=== PATIENT | male | born 1945 | race Caucasian/White ===

== ENCOUNTER 2016-06-12 14:01 | Emergency (ER) | payer OTHER ==
[2016-06-12 15:06] LABS: BASOPHIL 1.1 % (0-2); EOSINOPHIL 0.2 % (0-7); HCT 48.8 % (42.0-52.0); HGB 16.8 g/dl (13.2-18.0); LYMPHOCYTE 38.1 % (15-48); MCH 33.6 pg (25.0-31.0); MCHC 34.4 g/dL (32.0-36.0); MCV 97.6 fL (78.0-100.0); NEUTROPHIL 53.6 % (41-80); PLT 131 K/uL (150-400); RDW 13.8 % (11.5-14.0); WBC 4.5 K/uL (4.0-10.5)
[2016-06-12 15:19] LABS: BILIRUBIN - TOTAL 0.7 mg/dL (0.1-1.0); CREATININE 0.5 mg/dL (0.7-1.2); GLOBULIN (CALCULATION) 4.7 g/dL (2.2-4.2); TOTAL PROTEIN 8.7 g/dL (6.4-8.3)
[2016-06-12 15:22] LABS: POTASSIUM 4.2 mmol/L (3.5-5.1)
[2016-06-12 16:48] LABS: BILIRUBIN NEGATIVE (NEGATIVE); BLOOD NEGATIVE Ery/uL (NEGATIVE); CLARITY CLEAR (CLEAR); COLOR YELLOW (YELLOW); GLUCOSE (U) NORMAL (NORMAL); KETONE (U) 3+ (LARGE) mg/dL (NEGATIVE); LEUKOCYTES NEGATIVE Leu/uL (NEGATIVE); NITRITE NEGATIVE (NEGATIVE); PROTEIN TRACE (LOW) mg/dL (NEGATIVE); SPECIFIC GRAVITY >=1.030 (1.001-1.030)
[2016-06-12 16:54] LABS: MUCOUS TRACE
[2016-06-12 16:57] LABS: AMPHETAMINES NEGATIVE (NEGATIVE); BARBITURATES NEGATIVE (NEGATIVE); BENZODIAZEPINES NEGATIVE (NEGATIVE); COCAINE NEGATIVE (NEGATIVE); MARIJUANA (THC) NEGATIVE (NEGATIVE); METHADONE NEGATIVE (NEGATIVE); TRICYCLIC ANTIDEPRESSANT NEGATIVE (NEGATIVE)
[2016-10-26] MEDS ORDERED: K-DUR20 MEQ PO (14:31)
== END 2016-06-12 17:18 | disposition home or self-care (01) ==
LOC: FER 14:01
PROVIDERS: Emergency Medicine
DX: F10.10 Alcohol abuse, uncomplicated (principal); Y90.8 Blood alcohol level of 240 mg/100 ml or more
CPT/HCPCS: 36415; 80053; 80305; 81001; 85025; G0480; J3411

== ENCOUNTER 2020-11-21 09:12 | Emergency (ER) | payer OTHER ==
[~2020-11-21 09:12] MED LIST: K-DUR20 MEQ PO
[2020-11-21 10:04] LABS: BILIRUBIN NEGATIVE (NEGATIVE); BLOOD 3+ Ery/uL (NEGATIVE); CLARITY CLOUDY (CLEAR); COLOR RED (YELLOW); GLUCOSE (U) NORMAL (NORMAL); LEUKOCYTES TRACE Leu/uL (NEGATIVE); NITRITE POSITIVE (NEGATIVE); PROTEIN 3+ mg/dL (NEGATIVE); SPECIFIC GRAVITY 1.025 (1.001-1.030); pH 6.5 (5.0-9.0)
[2020-11-21 10:19] LABS: BACTERIA 1+; URINARY RBC TNTC
[2020-11-21 10:20] LABS: SQUAMOUS EPITHELIAL CELLS RARE
[2020-11-21 10:33] LABS: BASOPHIL 0.4 % (0-2); EOSINOPHIL 0.2 % (0-7); HCT 26.4 % (42.0-52.0); HGB 8.8 g/dl (13.2-18.0); LYMPHOCYTE 11.9 % (15-48); MCH 33.6 pg (25.0-31.0); MCHC 33.3 g/dL (32.0-36.0); MCV 100.8 fL (78.0-100.0); MONOCYTE 13.9 % (0-12); MPV 10.9 fL (6.0-9.5); NEUTROPHIL 72.5 % (41-80); NRBC 0; PLT 166 K/uL (150-400); RBC 2.62 M/uL (4.70-6.00); RDW 13.8 % (11.5-14.0); WBC 8.4 K/uL (4.0-10.5)
[2020-11-21 10:56] LABS: ALBUMIN 2.4 g/dL (3.4-5.0); BILIRUBIN - TOTAL 1.1 mg/dL (0.2-1.0); BUN/CREAT RATIO (CALC) 18.2 RATIO; CREATININE 0.66 mg/dL (0.67-1.17); GLOBULIN (CALCULATION) 4.6 g/dL; POTASSIUM 4.6 mmol/L (3.5-5.1)
[2020-11-21] MEDS ORDERED: NORCO 5-325 TA1 EACH PO (14:03)
[2020-11-21] MEDS ORDERED: CIPRO500 MG PO (14:03)
== END 2020-11-21 14:48 | disposition home or self-care (01) ==
LOC: FER 09:12
PROVIDERS: Internal Medicine
DX: S32.018A Other fracture of first lumbar vertebra, initial encounter for closed fracture (principal); E87.1 Hypo-osmolality and hyponatremia; N39.0 Urinary tract infection, site not specified; D64.9 Anemia, unspecified; N32.89 Other specified disorders of bladder; W18.30XA Fall on same level, unspecified, initial encounter; Y92.009 Unspecified place in unspecified non-institutional (private) residence as the place of occurrence of the external cause
CPT/HCPCS: 36415; 72131; 80053; 81001; 82550; 84484; 85025; 93005; J0696; J7030; Q9967

== ENCOUNTER 2020-12-18 21:17 | Emergency (ER) | payer OTHER ==
[~2020-12-18 21:17] MED LIST changes: +CIPRO500 MG PO; +NORCO 5-325 TA1 EACH PO
== END 2020-12-18 21:43 | disposition home or self-care (01) ==
LOC: FER 21:17
DX: T83.098A Other mechanical complication of other urinary catheter, initial encounter (principal); F03.90 Unspecified dementia, unspecified severity, without behavioral disturbance, psychotic disturbance, mood disturbance, and anxiety

== ENCOUNTER 2021-01-04 12:37 | Emergency (ER) | payer OTHER ==
[2021-01-04] MEDS ORDERED: NORVASC2.5 MG PO (13:23)
== END 2021-01-04 14:00 | disposition home or self-care (01) ==
LOC: FER 12:37
DX: I10 Essential (primary) hypertension (principal); F03.90 Unspecified dementia, unspecified severity, without behavioral disturbance, psychotic disturbance, mood disturbance, and anxiety
CPT/HCPCS: 99283

== ENCOUNTER → 2021-02-01 | Day surgery (SDC) | payer OTHER ==
[~2021-02-01] VITALS: Ht 170.2 cm; Wt 65.8 kg
[~2021-02-01] MED LIST changes: +NORVASC2.5 MG PO; +REMERON15 MG PO; +VENLAFAXINE HCL75 MG PO
[2021-02-01 08:38] LABS: HCT 33.5 % (42.0-52.0); HGB 10.6 g/dl (13.2-18.0); MCHC 31.6 g/dL (32.0-36.0); MPV 10.8 fL (6.0-9.5); RBC 3.42 M/uL (4.70-6.00); RDW 14.6 % (11.5-14.0)
[2021-02-01 09:01] LABS: ALBUMIN 2.6 g/dL (3.4-5.0); BILIRUBIN - TOTAL 0.3 mg/dL (0.2-1.0); BUN/CREAT RATIO (CALC) 26.3 RATIO; CREATININE 0.57 mg/dL (0.67-1.17); GLOBULIN (CALCULATION) 5.7 g/dL; POTASSIUM 3.2 mmol/L (3.5-5.1); TOTAL PROTEIN 8.3 g/dL (6.4-8.2)
== END | disposition home or self-care (01) ==
LOC: FAS 07:55
PROVIDERS: Surgery
DX: I87.2 Venous insufficiency (chronic) (peripheral) (principal); C67.9 Malignant neoplasm of bladder, unspecified; I10 Essential (primary) hypertension; Z79.899 Other long term (current) drug therapy; Z87.891 Personal history of nicotine dependence
CPT/HCPCS: 36415; 71045; 76000; 80053; C1788; J0690; J1100; J1644; J2405; J2704; J3010; J7120